=== PATIENT | male | born 1935 | race Caucasian/White ===

== ENCOUNTER → 2016-09-28 19:01 | Outpatient (CLI) | payer MEDICARE, BC | END | disposition home or self-care (01) | LOC: D.SLEEP 19:01 | DX: G47.33 Obstructive sleep apnea (adult) (pediatric) (principal) ==

== ENCOUNTER → 2016-10-06 18:55 | Outpatient (CLI) | payer MEDICARE, BC | END | disposition home or self-care (01) | LOC: D.SLEEP 10-03 20:30 | DX: F51.01 Primary insomnia (principal); G47.33 Obstructive sleep apnea (adult) (pediatric) ==

== ENCOUNTER → 2017-01-02 17:16 | Outpatient (CLI) | payer MEDICARE, BC ==
[2017-01-02 17:46] LABS: BASOPHILS 0.1 % (0-2); EOSINOPHILS 0.3 % (0-7); HEMATOCRIT 25.2 % (42.0-54.0); HEMOGLOBIN 7.9 g/dL (13.5-17.5); IMMATURE GRANULOCYTES 0.9 % (0-5); LYMPHOCYTES 10.8 % (15-50); MCH 29.2 pg (26.0-34.0); MCHC 31.3 g/dL (31.0-37.0); MEAN PLATELET VOLUME 10.2 fL (7.4-10.4); MONOCYTES 17.9 % (2-11); PLATELET COUNT 313 10x3/uL (130-400); RBC 2.71 10x6/uL (4.20-6.10); RDW 15.9 % (11.5-14.5); WBC 6.8 10x3/uL (4.8-10.8)
== END | disposition home or self-care (01) ==
LOC: D.LABREF 17:16
PROVIDERS: Family Medicine
DX: R53.81 Other malaise (principal); E83.119 Hemochromatosis, unspecified